=== PATIENT | male | born 1960 | race Caucasian/White ===

== ENCOUNTER 2018-05-04 18:56 | Emergency (ER) | payer OTHER ==
--- NOTE | 2018-05-04 21:39 | ED ---
Dereje Jean Baptiste Tariq, scribed for Daisy Almonte MD on 05/04/18 at 1927 . HPI Cardiac - HPI Summary HPI Summary: A 57 y/o male presents to ED s/p shock from a light fixture. According to the patient, he was working on a light fixture when he was shocked. The fixture was low-voltage light of 110 volts around 1330. Currently feels fine and has been doing fine since the incident, however he is concerned about his AICD pacemaker as he was suggested by his spot machine operator to get it checked out. Pt denies any dizziness, chest pain or LOC. As per triage, "Pt has AICD and feels odd but denies any pain and/or any specific symptoms. It was noted that the AICD pacemaker is 13-14 months old. - History of Current Complaint Chief Complaint: EDGeneral Stated Complaint: ELCTROCUTED/HAS PACEMAKER Time Seen by Provider: 05/04/18 19:24 Hx Obtained From: Patient Onset/Duration: Started Hours Ago - Shock via light fixture at 1330, Resolved Timing: Lasting Hours - Shock via light fixture at 1330 Current Severity: None Pain Intensity: 0 Pain Scale Used: 0-10 Numeric Chest Pain Radiates: No Alleviating Factor(s): Nothing Associated Signs and Symptoms: Positive: Tingling - Tingling in chest. - Allergy/Home Medications Allergies/Adverse Reactions: Allergies Allergy/AdvReac Type Severity Reaction Status Date / Time MS Codeine [Codeine] Allergy Mild upset Verified 09/06/15 06:44 stomach PMH/Surg Hx/FS Hx/Imm Hx Cardiovascular History: Reports: Hx Angina, Hx Coronary Artery Disease - CHOLESTEROL, Hx Hypercholesterolemia, Hx Pacemaker/ICD - FEBRUARY 2017 Respiratory History: Reports: Hx Sleep Apnea - POSSIBLY- BUT HAS NEVER TESTED GI History: Reports: Hx Gastroesophageal Reflux Disease - ON MEDICATION FOR History: Reports: Other Problems/Disorders - UTI 2 YEARS AGO, NONE SINCE Musculoskeletal History: Reports: Hx Arthritis - OSTEOARTHRITIS, Hx Tendonitis - LEFT ELBOW Sensory History: Denies: Hx Contacts or Glasses, Hx Hearing Aid Opthamlomology History: Denies: Hx Contacts or Glasses Neurological History: Reports: Hx Migraine - EVERY COUPLE OF MONTHS-OTC EXCEDRIN MIGRAINE Psychiatric History: Reports: Hx Anxiety - HX OF- ON MEDICATON FOR, Hx Depression - ON MEDICATION FOR Denies: Hx Panic Disorder - Surgical History Surgery Procedure, Year, and Place: SEVERAL KNEE SURGERIES BOTH KNEES- [facility]. LEFT THUMB SURGERY,[facility]. RIGHT THUMB [id number] Hx Anesthesia Reactions: Yes - IN THE PAST - NAUSEA- NO PROBLEMS WITH 2014 SURGERY Infectious Disease History: No Infectious Disease History: Denies: Traveled Outside the [place] in Last 30 Days - Family History Known Family History: Positive: Other - COLON CANCER - Social History Alcohol Use: None Alcohol Amount: FRIDAY NIGHT- 2-3 BEERS AND 2-3 HARD DRINKS Substance Use Type: Reports: None Smoking Status (MU): Former Smoker Type: Cigarettes Amount Used/How Often: 1 PPD X 5 YEARS Length of Time of Smoking/Using Tobacco: 8 YEARS Have You Smoked in the Last Year: No Review of Systems Negative: Fever Positive: Other - POSITIVE: Tingling in chest. Negative: Chest Pain Neurological: Other - NEGATIVE: Dizziness Negative: Syncope All Other Systems Reviewed And Are Negative: Yes Physical Exam - Summary Physical Exam Summary: VITAL SIGNS: Reviewed. GENERAL: Patient is a well-developed and nourished MALE who is lying comfortable in the stretcher. Patient is not in any acute respiratory distress. HEAD AND FACE: No signs of trauma. No ecchymosis, hematomas or skull depressions. No sinus tenderness. EYES: PERRLA, EOMI x 2, No injected conjunctiva, no nystagmus. EARS: Hearing grossly intact. Ear canals and tympanic membranes are within normal limits. MOUTH: Oropharynx within normal limits. NECK: Supple, trachea is midline, no adenopathy, no JVD, no carotid bruit, no c- spine tenderness, neck with full ROM. CHEST: Symmetric, no tenderness at palpation LUNGS: Clear to auscultation bilaterally. No wheezing or crackles. CVS: Regular rate and rhythm, S1 and S2 present, no murmurs or gallops appreciated. ABDOMEN: Soft, non-tender. No signs of distention. No rebound no guarding, and no masses palpated. Bowel sounds are normal. EXTREMITIES: FROM in all major joints, no edema, no cyanosis or clubbing. NEURO: Alert and oriented x 3. No acute neurological deficits. Speech is normal and follows commands. SKIN: Dry and warm Triage Information Reviewed: Yes Vital Signs On Initial Exam: Initial Vitals Temp Pulse Resp BP Pulse Ox 97.9 F 73 16 124/72 96 05/04/18 19:00 05/04/18 19:00 05/04/18 19:00 05/04/18 19:00 05/04/18 19:00 Vital Signs Reviewed: Yes Diagnostics - Vital Signs Vital Signs Temp Pulse Resp BP Pulse Ox 05/04/18 19:00 97.9 F 73 16 124/72 96 - Laboratory Lab Statement: Any lab studies that have been ordered have been reviewed, and results considered in the medical decision making process. - EKG 1910 Cardiac Rate: NL - 74 BPM EKG Rhythm: Sinus Rhythm EKG Interpretation: PACED RHYTHM OF 74 BPM. Re-Evaluation - Re-Evaluation First Eval Re-Evaluation Time: 21:10 Comment: [employer] STATED PACEMAKER WAS WORKING FINE. Disposition - Course Course Of Treatment: A 57 y/o male presents to ED s/p shock from a light fixture. According to the patient, he was working on a light fixture when he was shocked. The fixture was low-voltage light of 110 volts around 1330. Currently feels fine and has been doing fine since the incident, however he is concerned about his AICD pacemaker as he was suggested by his spot machine operator to get it checked out. Pt denies any dizziness, chest pain or LOC. It was noted that the AICD pacemaker is 13-14 months old. An EKG revealed a paced rhythm of 74 BPM. In the ED course, patient was given no medications. We discussed patient care with [employer], Baldomero Duran, and spot machine operator Dr. Prescott. They recommended a local [employer] to evaluate AICD pacemaker. A appliance service representative from the [employer] evaluated the device and revealed the device was properly functioning. Patient will be discharged with a diagnosis of pacemaker malfunction. Patient is to follow up with cardiology in 1-2 days. Pt is agreeable with this plan. - Diagnoses Provider Diagnoses: Pacemaker malfunction - Physician Notifications Discussed Care Of Patient With: Jake Prescott Time Discussed With Above Provider: 19:45 Instructed by Provider To: Other - SPOKE WITH [employer]YCLER, BALDOMERO DURAN. NIELS STATED THAT THE PATIENT WAS ELECTROCUTED FROM A LOW-VOLTAGE SOURCE AND MOST LIKELY THE PACEMAKER IS OKAY, HOWEVER, HE WILL CALL YARN FINISHER , DR. PRESCOTT, TO DISCUSS THE CASE WITH HIM AND WILL CALL BACK. 1952: SPOKE WITH [employer] RECYCLER, BALDOMERO DURAN, AND HE STATED THAT A LOCAL [employer] RECYCLER WILL BE COMING TO SEE PATIENT IN ONE HOUR. Discharge - Sign-Out/Discharge Documenting (check all that apply): Discharge/Admit/Transfer - DISCHARGE - Discharge Plan Condition: Stable Disposition: HOME Patient Education Materials: Pacemaker (DC) Referrals: Karen Manuel MD [Primary Care Provider] - Jake Prescott MD [Medical Doctor] - 2 Days (FOLLOW UP WITH CARDIOLOGY IN 1 -2 DAYS.) Additional Instructions: RETURN TO THE ED FOR ANY NEW OR WORSENING SYMPTOMS. The documentation as recorded by the Dereje arreguin Tariq accurately reflects the service I personally performed and the decisions made by me, Daisy Almonte MD.
[2018-05-04 21:41] VITALS: BP 151/81
== END 2018-05-04 21:41 | disposition home or self-care (01) ==
LOC: ED 18:56
DX: T82.119A Breakdown (mechanical) of unspecified cardiac electronic device, initial encounter (principal); I25.10 Atherosclerotic heart disease of native coronary artery without angina pectoris; Z87.891 Personal history of nicotine dependence; Z87.19 Personal history of other diseases of the digestive system
CPT/HCPCS: 93005; 99282

== ENCOUNTER 2019-12-31 10:52 | Observation (INO) | payer OTHER ==
--- OUTSIDE RECORDS SUMMARY | 2019-12-31 11:08 | XMS REPORT | Continuity of Care Document ---
:1960 External Reference #:[id number] Author Name Precious Gonzalez N.P. (transmitted by agent of provider Zahida Bond) Address [address], [place] [address] Care Team Providers Name Role Phone Karen Manuel MD - Internal Care Team Information Advertising Designer [phone] Medicine Aguilar Patiño MD - Cardiovascular Care Team Information Advertising Designer [phone] Disease Problems Active Problems Provider Date Benign essential hypertension Rosey Monroy M.D., FACP Onset: 01/15/2011 Pure hypercholesterolemia Rosey Monroy M.D., FACP Onset: 01/15/2011 Sleep apnea Sherri Hartman DNP, RN, RECEPTIONIST-BC Onset: 07/12/2016 Left bundle branch block Bubba Batista M.D.,FACP Onset: 11/15/2016 Migraine Rosey Monroy M.D., FACP Onset: 01/15/2011 Obstructive sleep apnea syndrome Sherri Hartman DNP, RN, RECEPTIONIST-BC Onset: Note: Moderate. HST 08/01/16: AHI 28.8, O2 nadya 80% Localized, primary osteoarthritis Irasema Camargo M.D. Onset: 09/10/2017 Essential hypertension Precious Gonzalez NNiko Onset: 12/23/2017 Social History Type Date Description Comments Sex Unknown ETOH Use Currently consumes 2 beverages per week alcohol Tobacco Use Start: Unknown Patient is a former Quit smoking in 1985 End: Unknown smoker Recreational Drug Use Denies Drug Use Tobacco Use Start: Unknown Heavy tobacco smoker 1PPD x 10 years (more than 10 cigarettes/day) Smoking Status Reviewed: 01/22/20 Heavy tobacco smoker 1PPD x 10 years (more than 10 cigarettes/day) Exercise Type/Frequency Exercises regularly Stationary bike and walks 20 minutes 3 times weekly Allergies, Adverse Reactions, Alerts Active Allergies Reaction Severity Comments Date Codeine 04/16/2010 Medications Active Medications SIG Qnty Indications Ordering Date Provider Amoxicillin/Clavulanate one tablet by 20tabs J01.90 Precious Varn, 2019 Potassium mouth twice N.P. 875-125mg Tablets daily for 10 days Fluticasone Propionate 2 sprays each 16gm J01.90 Precious Varn, 11/17/2019 nostril daily as N.P. 50mcg/Act Suspension needed Venlafaxine HCL ER 1 by mouth every 90tabs Precious Varn, 11/17/2019 150mg day N.P. Tablets ER 24HR Sildenafil Citrate Take 1 Tablet By 20tabs Precious Varn, 08/15/2019 50mg Mouth as Needed N.P. Tablets as Directed Xanax 1 tablet every 14tabs F41.1 Precious Varn, 08/02/2019 0.25mg Tablets 12 hours as N.P. needed for anxiety Slow-Mag take 1 tab 2x 60tabs Han FAllyssa 06/24/2019 71.5-119mg Tablets daily Farhad Banerjee DR Protonix 1 by mouth every 90tabs Precious Varn, 12/03/[address] day N.P. Spironolactone 1/2 tab by mouth Unknown 04/02/2017 25mg Tablets every day Atorvastatin Calcium Take One Tablet 90tabs E78.0 Precious Varn, 2012 10mg By Mouth Once N.P. Tablets Daily Cpap for sleep apnea Unknown Device dx g47.30 Coreg 1.5 tab by mouth Jake S. 12.5mg Tablets twice daily Farhad Wallace Entresto 1 tablet by Aguilar Patiño MD 97-103mg Tablets mouth twice daily Lyrica Take One Capsule 90caps Precious Varn, 50mg Capsules By Mouth Three N.P. Times A Day (Max Of 3 Per Day ) History Medications Venlafaxine HCL ER 1 by mouth every 90tabs Precious Carlos, 08/31/2019 - 75mg day N.P. 11/17/2019 Tablets ER 24HR Duloxetine HCL 1 by mouth every 30caps Precious Gonzalez, 08/02/2019 - 60mg Caps day N.P. 08/31/2019 DR Yañez Medications Administered in Office Medication SIG Qnty Indications Ordering Provider Date [facility] pharmacy Unknown 08/04/2019 administered Injection Inj, Regadenoson, 0.1 MG Chu Escobar, DO FAC 11/26/2016 Injection Technetium TC 99M Chu Escobar, DO FACC 11/26/2016 Tetrofosmin, Per Unit Dose Up To 40 Millicuries Injection Celestone 3 mg and 3mg Vivek Oarntes M.D. 03/14/2015 Injection Immunizations CPT Code Status Date Vaccine Lot # [id number] Given 08/04/2019 Influenza Virus Vaccine, Quadrivalent, Split, Preservative Free 13135 Given 08/05/2018 Influenza Virus Vaccine, Quadrivalent, Split, [id number] Preservative Free 02675 Given 11/27/2015 Hepatitis B Vaccine Adult Dosage [id number] 09841 Given 11/27/2015 Hepatitis A Vaccine Adult Dosage [id number] Given 07/01/2012 Fluzone Vaccine [id number] 05041 Given 07/01/2012 Tdap - Tetanus/Diptheria/Acellular Pertussis [id number] 82231 Given 11/23/2009 Influenza Virus Vaccine, Pandemic Formulation 14694 Given 11/23/2009 Administration Swine Flu Shot 58195 Given 08/10/2009 Influenza Virus 3Yrs & Over Vital Signs Date Vital Result Comment 11/17/2019 10:06am Height 70 inches 5'10" Weight 221.12 lb Heart Rate 77 /min BP Systolic Sitting 108 mmHg BP Diastolic Sitting 65 mmHg Body Temperature 97.7 F O2 % BldC Oximetry 97 % BMI (Body Mass Index) 31.7 kg/m2 09/28/2019 9:16am Height 70 inches 5'10" Weight 220.00 lb Heart Rate 70 /min BP Systolic 120 mmHg BP Diastolic 74 mmHg O2 % BldC Oximetry 97 % BMI (Body Mass Index) 31.6 kg/m2 Results Test Acquired Date Facility Test Result H/L Range Note Lipid Panel - 06/16/2019 [facility] Creatine 162 U/L Normal 10 -223 1 [address] [place] [address] [phone] Comp Metabolic 06/16/2019 [facility] Sodium 138 mmol/L Normal 135-[address] [place] [address] [phone] Potassium 4.5 mmol/L Normal 3.5-5.0 Chloride 105 mmol/L Normal 101-111 Co2 Carbon Dioxide 25 mmol/L Normal 22-32 Anion Gap 8 mmol/L Normal 2-11 Glucose 108 mg/dL High 70-100 Blood Urea Nitrogen 16 mg/dL Normal 6-24 Creatinine 1.13 mg/dL Normal 0.67-1.17 BUN/Creatinine Ratio 14.2 Normal 8-20 Calcium 9.6 mg/dL Normal 8.6-10.3 Total Protein 6.8 g/dL Normal 6.4-8.9 Albumin 4.6 g/dL Normal 3.2-5.2 Globulin 2.2 g/dL Normal 2-4 Albumin/Globulin Ratio 2.1 Normal 1-3 Total Bilirubin 0.70 mg/dL Normal 0.2-1.0 Alkaline Phosphatase 93 U/L Normal 34-104 Alt 22 U/L Normal 7-52 Ast 19 U/L Normal 13-39 Egfr Non- 66.2 >60 Egfr 80.1 >60 2 Lipid Profile 06/16/2019 [facility] Triglycerides 142 mg/dL 3 (Trig/Chol/HDL) [place] [address] [phone] Cholesterol 157 mg/dL 4 HDL Cholesterol 45.9 mg/dL 5 LDL Cholesterol 83 mg/dL 6 CBC Auto 06/16/2019 [facility] White Blood 5.8 10^3/uL Normal 3.5-10.8 [place] [address] [phone] Red Blood Count 4.86 10^6/uL Normal 4.18-5.48 Hemoglobin 14.1 g/dL Normal 14.0-18.0 Hematocrit 42 % Normal 42-52 Mean Corpuscular Volume 86 fL Normal 80-94 Mean Corpuscular Hemoglobin 29 pg Normal 27-31 Mean Corpuscular HGB Conc 34 g/dL Normal 31-36 Red Cell Distribution Width 14 % Normal 10-15 Platelet Count 261 10^3/uL Normal 150-450 Mean Platelet Volume 8.1 fL Normal 7.4-10.4 Abs Neutrophils 3.8 10^3/uL Normal 1.5-7.7 Abs Lymphocytes 1.2 10^3/uL Normal 1.0-4.8 Abs Monocytes 0.6 10^3/uL Normal 0-0.8 Abs Eosinophils 0.2 10^3/uL Normal 0-0.6 Abs Basophils 0.0 10^3/uL Normal 0-0.2 Abs Nucleated RBC 0.0 10^3/uL Granulocyte % 66.8 % Lymphocyte % 20.0 % Monocyte % 9.6 % Eosinophil % 2.8 % Basophil % 0.8 % Nucleated Red Blood Cells % 0.1 Laboratory test 06/16/2019 [facility] Magnesium 1.9 mg/dL Normal 1.9-2.7 [address] [place] [address] [phone] TSH (Thyroid Stim Horm) 1.60 mcIU/mL Normal 0.34-5.60 8 1 FASTING 2 Because ethnic data is not always readily available, this report includes an eGFR for both -Americans and non- Americans. The National Kidney Disease Education Program (NKDEP) does not endorse the use of the MDRD equation for patients that are not between the ages of 18 and 70, are , have extremes of body size, muscle mass, or nutritional status, or are non- or non-. According to the National Kidney Foundation, irrespective of diagnosis, the stage of the disease is based on the level of kidney function: Stage Description GFR(mL/min/1.73 m(2)) 1 Kidney damage with normal or decreased GFR 90 2 Kidney damage with mild decrease in GFR 60-89 3 Moderate decrease in GFR 30-59 4 Severe decrease in GFR 15-29 5 Kidney failure <15 (or dialysis) 3 Desirable: <150 Borderline High: 150-199 High: 200-499 Very High: >500 4 Desirable: <200 Borderline High: 200-239 High: >239 5 Low: <40 Desirable: 40-60 High: >60 6 Desirable: <100 Near Optimal: 100-129 Borderline High: 130-159 High: 160-189 Very High: >189 7 FASTING 8 FASTING Procedures Date Code Description Status 09/06/2019 41685 Icd Eval Sing,Dual,Multi Lead Remote Recpt Transm Tech Completed Rev Tech S 09/06/2019 27159 Icd Eval Sing,Dual,Multi Lead Remote Recpt Transm Tech Completed Rev Tech S 09/06/2019 61122 Icd Check Remote Up To 90 Days Single,Dual,Multiple Completed Lead 09/06/2019 58318 Icd Check Remote Up To 90 Days Single,Dual,Multiple Completed Lead 07/15/2019 89917 ECHO Transthoracic, Real-Time 2D With Doppler And Color Completed Flow 07/15/2019 12891 ECHO Transthoracic, Real-Time 2D With Doppler And Color Completed Flow 07/07/2019 60071 Treadmill Interp/Report Only Completed 07/07/2019 66061 Stress Test Supervsn W/Out I/R Completed 06/29/2019 43820 Icd Check Single,Dual Or Multiple In Person W/DR Xie Completed Heart Rhyth 06/29/2019 79535 Icd Check Single,Dual Or Multiple In Person W/DR Xie Completed Heart Rhyth 06/24/2019 72770 EKG Tracing & Interpretation Completed 06/15/2019 24591 Icd Eval With Iterative Adjustmt Multiple Lead System Completed 06/15/2019 23208 Icd Eval With Iterative Adjustmt Multiple Lead System Completed 06/07/2019 50341 Icd Eval Sing,Dual,Multi Lead Remote Recpt Transm Tech Completed Rev Tech S 06/07/2019 46374 Icd Eval Sing,Dual,Multi Lead Remote Recpt Transm Tech Completed Rev Tech S 06/07/2019 98236 Icd Check Remote Up To 90 Days Single,Dual,Multiple Completed Lead 06/07/2019 14262 Icd Check Remote Up To 90 Days Single,Dual,Multiple Completed Lead 12/27/2007 [id number] Colonoscopy Completed Medical Devices Description No Information Available Encounters Type Date Location Provider Dx Diagnosis Office Visit 09/28/2019 Pulmonology And Sherri Hartman, G47.33 Obstructive sleep 9:30a [facility] RN, RECEPTIONIST-BC apnea (adult) Paraprofessional Aide (pediatric) R53.83 Other fatigue Office Visit 09/03/2019 Jabier Joseph S. I42.9 Cardiomyopathy, 2:00p Cardiology Farhad Wallace unspecified Z95.810 Presence of automatic (implantable) cardiac defibrillator I44.7 Left bundle-branch block, unspecified I10 Essential (primary) hypertension Office Visit 08/02/2019 2:00p Paraprofessional Aide Internal Precious Gonzalez, F41.1 Generalized Medicine - [facility] N.P. anxiety disorder Office Visit 06/24/2019 10:30a [facility] Cris Hernández, I42.9 Cardiomyopathy, N.P. unspecified Z95.810 Presence of automatic (implantable) cardiac defibrillator I47.1 Supraventricular tachycardia I44.7 Left bundle-branch block, unspecified I10 Essential (primary) hypertension E78.00 Pure hypercholesterolemia, unspecified Assessments Date Code Description Provider 11/17/2019 J01.90 Acute sinusitis, unspecified Precious Gonzalez, N.P. 11/17/2019 F41.1 Generalized anxiety disorder Precious Gonzalez, N.P. 09/28/2019 G47.33 Obstructive sleep apnea (adult) Sherri Hartman DNP, RN, (pediatric) [facility] 09/28/2019 R53.83 Other fatigue Sherri Hartman DNP, RN, [facility] 09/06/2019 I42.9 Cardiomyopathy, unspecified Jake Wallace M.D. 09/06/2019 I42.9 Cardiomyopathy, unspecified Remote Device Checks 09/06/2019 Z95.810 Presence of automatic (implantable) Jake Wallace M.D. cardiac defibrillator 09/06/2019 Z95.810 Presence of automatic (implantable) Remote Device Checks cardiac defibrillator 09/06/2019 I47.1 Supraventricular tachycardia Jake Wallace M.D. 09/06/2019 I47.1 Supraventricular tachycardia Remote Device Checks 09/03/2019 I42.9 Cardiomyopathy, unspecified Jake Wallace M.D. 09/03/2019 Z95.810 Presence of automatic (implantable) Jake Wallace M.D. cardiac defibrillator 09/03/2019 I44.7 Left bundle-branch block, unspecified Jake Wallace M.D. 09/03/2019 I10 Essential (primary) hypertension Jake Wallace M.D. 08/02/2019 F41.1 Generalized anxiety disorder Precious Gonzalez, N.P. 07/15/2019 I42.9 Cardiomyopathy, unspecified Jake Wallace M.D. 07/15/2019 I42.9 Cardiomyopathy, unspecified [facility] Schedule 07/15/2019 Z95.810 Presence of automatic (implantable) [facility] Schedule cardiac defibrillator 07/15/2019 I44.7 Left bundle-branch block, unspecified [facility] Schedule 07/15/2019 I10 Essential (primary) hypertension [facility] Schedule 07/07/2019 R06.02 Shortness of breath Jake Wallace M.D. 06/29/2019 Z95.810 Presence of automatic (implantable) Jake Wallace M.D. cardiac defibrillator 06/29/2019 Z95.810 Presence of automatic (implantable) [facility] Pacer Schedule cardiac defibrillator 06/24/2019 I47.1 Supraventricular tachycardia Jake Wallace M.D. 06/24/2019 I42.9 Cardiomyopathy, unspecified Cris Hernández, N.P. 06/24/2019 Z95.810 Presence of automatic (implantable) Jake Wallace M.D. cardiac defibrillator 06/24/2019 Z95.810 Presence of automatic (implantable) Cris [place]. Edgar, N.P. cardiac defibrillator 06/24/2019 I47.1 Supraventricular tachycardia Cris Hernández, N.P. 06/24/2019 I44.7 Left bundle-branch block, unspecified Cris [place]. Edgar, N.P. 06/24/2019 I10 Essential (primary) hypertension Cris [place]. Edgar, N.P. 06/24/2019 E78.00 Pure hypercholesterolemia, Cris Hernández, N.P. unspecified 06/15/2019 I42.9 Cardiomyopathy, unspecified [facility] Pacer Schedule 06/15/2019 Z95.810 Presence of automatic (implantable) Jake Wallace M.D. cardiac defibrillator 06/15/2019 Z95.810 Presence of automatic (implantable) [facility] Pacer Schedule cardiac defibrillator 06/07/2019 I42.9 Cardiomyopathy, unspecified Han Banerjee M.D. 06/07/2019 I42.9 Cardiomyopathy, unspecified Remote Device Checks 06/07/2019 Z95.810 Presence of automatic (implantable) Han Banerjee M.D. cardiac defibrillator 06/07/2019 Z95.810 Presence of automatic (implantable) Remote Device Checks cardiac defibrillator Plan of Treatment Future Appointment(s):11/29/2019 9:30 am - [facility] Pacer Schedule at [facility]09/29/2020 9:45 am - Sherri Hartman DNP, RN, RECEPTIONIST- at [facility]03/30/2020 1:20 pm - aJke Wallace M.D. at [facility]02/01/2020 2:20 pm - Precious Gonzalez N.PAllyssa at [facility] Internal [facility] - [facility]11/17/2019 - Precious Gonzalez NNikoJ01.90 Acute sinusitis , unspecifiedNew Medication:Amoxicillin/Clavulanate Potassium 875-125 mg - one tablet by mouth twice daily for 10 daysFluticasone Propionate 50 mcg/Act - 2 sprays each nostril daily as neededComments:For your sinus infection: I sent a prescription for Augmentin to the pharmacy. Take 1 tablet every 12 hours until they are gone. Take this with a little food. I also sent a prescription for a steroid based nasal spray. Use 2 inhalations in each nostril once daily until your infection has cleared. If your symptoms do not improve call the office.F41.1 Generalized anxiety disorderComments:To help with your anxiety and mood I have boosted your Venlafaxine to 150 mg.This may take up to 4 weeks to become therapeutic. If you do not find this to be helpful, please contact the office. Functional Status Description No Information Available Mental Status Description No Information Available Referrals Description No Information Available
--- OUTSIDE RECORDS SUMMARY | 2019-12-31 11:08 | XMS REPORT | Continuity of Care Document ---
:1960 External Reference #:[id number] Author Name Remote Device Checks (transmitted by agent of provider Tiny Terrazas) Address [address] [facility] [address] [place] [address] Care Team Providers Name Role Phone Karen Manuel MD - Internal Care Team Information Data Control Assistant Medicine Aguilar Patiño MD - Cardiovascular Care Team Information Data Control Assistant [phone] Disease Problems Active Problems Provider Date Benign essential hypertension Rosey Monroy M.D., FACP Onset: 01/15/2011 Pure hypercholesterolemia Rosey Monroy M.D., FACP Onset: 01/15/2011 Sleep apnea Sherri Hartman DNP, RN, [employer] Onset: 07/12/2016 Left bundle branch block Bubba Batista M.D.,FACP Onset: 11/15/2016 Migraine Rosey Monroy M.D., FACP Onset: 01/15/2011 Obstructive sleep apnea syndrome Sherri Hartman DNP, RN, [employer] Onset: Note: Moderate. HST 08/01/16: AHI 28.8, O2 nadya 80% Localized, primary osteoarthritis Irasema Camargo M.D. Onset: 09/10/2017 Essential hypertension Precious Gonzalez N.P. Onset: 12/23/2017 Social History Type Date Description Comments Sex Unknown ETOH Use Currently consumes 2 beverages per week alcohol Tobacco Use Start: Unknown Patient is a former Quit smoking in 1985 End: Unknown smoker Recreational Drug Use Denies Drug Use Tobacco Use Start: Unknown Heavy tobacco smoker 1PPD x 10 years (more than 10 cigarettes/day) Smoking Status Reviewed: 11/17/19 Heavy tobacco smoker 1PPD x 10 years (more than 10 cigarettes/day) Exercise Type/Frequency Exercises regularly Stationary bike and walks 20 minutes 3 times weekly Allergies, Adverse Reactions, Alerts Active Allergies Reaction Severity Comments Date Codeine 04/16/2010 Medications Active Medications SIG Qnty Indications Ordering Date Provider Venlafaxine HCL ER 1 by mouth every 90tabs Precious Varn, 11/17/2019 150mg day N.P. Tablets ER 24HR Sildenafil Citrate Take 1 Tablet By 20tabs Precious Varn, 08/15/2019 50mg Mouth as Needed N.P. Tablets as Directed Xanax 1 tablet every 14tabs F41.1 Precious Varn, 08/02/2019 0.25mg Tablets 12 hours as N.P. needed for anxiety Slow-Mag take 1 tab 2x 180tabs [place] 06/24/2019 71.5-119mg daily Farhad Banerjee Tablets Protonix 1 by mouth every 90tabs Precious Varn, 12/03/[address] day N.P. Spironolactone 1/2 tab by mouth Unknown 04/02/2017 25mg every day Tablets Atorvastatin Calcium Take One Tablet 90tabs E78.0 Precious Varsadiq, 2012 10mg By Mouth Once N.P. Tablets Daily Cpap for sleep apnea Unknown Device dx g47.30 Coreg 1.5 tab by mouth Qutacaridad S. 12.5mg Tablets twice daily Farhad Wallace Entresto 1 tablet by Aguilar Patiño MD 97-103mg Tablets mouth twice daily Lyrica Take One Capsule 90caps Precious Varn, 50mg Capsules By Mouth Three N.P. Times A Day (Max Of 3 Per Day ) History Medications Amoxicillin/Clavulanate one tablet by 20tabs J01.90 Precious Varn, 2019 - Potassium mouth twice N.P. 11/27/2019 875-125mg Tablets daily for 10 days Fluticasone Propionate 2 sprays each 16gm J01.90 Precious Varn, 2019 - 50mcg/Act nostril daily N.P. 12/01/2019 Suspension as needed Venlafaxine HCL ER 1 by mouth 90tabs Precious Gonzalez, 08/31/2019 - 75mg Tablets ER 24HR every day N.P. 11/17/2019 Duloxetine HCL 1 by mouth 30caps Precious Gonzalez, 08/02/2019 - 60mg Caps DR Otilio every day N.P. 08/31/2019 Medications Administered in Office Medication SIG Qnty Indications Ordering Provider Date [facility] Unknown 12/07/2019 administered Injection [facility] Unknown 08/04/2019 administered Injection Inj, Regadenoson, 0.1 MG Chu Escobar, DO FACC 11/26/2016 Injection Technetium TC 99M Chu Escobar, DO FAC 11/26/2016 Tetrofosmin, Per Unit Dose Up To 40 Millicuries Injection Celestone 3 mg and 3mg Vivek Orantes M.D. 03/14/2015 Injection Immunizations CPT Code Status Date Vaccine Lot # [id number] Given 08/04/2019 Influenza Virus Vaccine, Quadrivalent, Split, Preservative Free [id number] Given 08/05/2018 Influenza Virus Vaccine, Quadrivalent, Split, [id number] Preservative Free 67830 Given 11/27/2015 Hepatitis B Vaccine Adult Dosage [id number] 54325 Given 11/27/2015 Hepatitis A Vaccine Adult Dosage [id number] Given 07/01/2012 Fluzone Vaccine [id number] Given 07/01/2012 Tdap - Tetanus/Diptheria/Acellular Pertussis [id number] 30163 Given 11/23/2009 Influenza Virus Vaccine, Pandemic Formulation 24737 Given 11/23/2009 Administration Swine Flu Shot 42987 Given 08/10/2009 Influenza Virus 3Yrs & Over [...] BMI (Body Mass Index) 31.6 kg/m2 Results Description No Information Available Procedures Date Code Description Status 12/30/2019 56616 Icd Eval Sing,Dual,Multi Lead Remote Recpt Transm Tech Completed Rev Tech S 12/30/2019 93103 Icd Check Remote Up To 90 Days Single,Dual,Multiple Completed Lead 11/29/2019 35797 Icd Check Single,Dual Or Multiple In Person W/DR Xie Completed Heart Rhyth 11/29/2019 27748 Icd Check Single,Dual Or Multiple In Person W/DR Xie Completed Heart Rhyth 09/06/2019 07600 Icd Eval Sing,Dual,Multi Lead Remote Recpt Transm Tech Completed Rev Tech S 09/06/2019 01409 Icd Eval Sing,Dual,Multi Lead Remote Recpt Transm Tech Completed Rev Tech S 09/06/2019 58007 Icd Check Remote Up To 90 Days Single,Dual,Multiple Completed Lead 09/06/2019 23956 Icd Check Remote Up To 90 Days Single,Dual,Multiple Completed Lead 07/15/2019 46535 ECHO Transthoracic, Real-Time 2D With Doppler And Color Completed Flow 07/15/2019 57769 ECHO Transthoracic, Real-Time 2D With Doppler And Color Completed Flow 07/07/2019 90928 Treadmill Interp/Report Only Completed 07/07/2019 33731 Stress Test Supervsn W/Out I/R Completed 12/27/2007 78935304 Colonoscopy Completed Medical Devices Description No Information Available Encounters Type Date Location Provider Dx Diagnosis Office Visit 11/17/2019 [facility] Jorden Gonzalez, J01.90 Acute sinusitis , 10:00a Medicine - [facility] N.P. unspecified F41.1 Generalized anxiety disorder Office Visit 09/28/2019 [facility] G47.33 Obstructive sleep 9:30a [facility], RN, apnea (adult) [facility] [employer] (pediatric) R53.83 Other fatigue Office Visit 09/03/2019 Jabier Galvez I42.9 Cardiomyopathy, 2:00p Cardiology Farhad Wallace unspecified Z95.810 Presence of automatic (implantable) cardiac defibrillator I44.7 Left bundle-branch block, unspecified I10 Essential (primary) hypertension Office Visit 08/02/2019 2:00p [facility] Jorden Gonzalez, F41.1 Generalized Medicine - N.P. anxiety disorder [facility] Assessments Date Code Description Provider 12/30/2019 I42.9 Cardiomyopathy, unspecified Remote Device Checks 12/30/2019 Z95.810 Presence of automatic (implantable) Remote Device Checks cardiac defibrillator 12/30/2019 I47.1 Supraventricular tachycardia Remote Device Checks 11/29/2019 I42.9 Cardiomyopathy, unspecified Jake Wallace M.D. 11/29/2019 I42.9 Cardiomyopathy, unspecified [facility] Pacer Schedule 11/29/2019 Z95.810 Presence of automatic (implantable) Jake Wallace M.D. cardiac defibrillator 11/29/2019 Z95.810 Presence of automatic (implantable) Ica Pacer Schedule cardiac defibrillator 11/29/2019 I47.1 Supraventricular tachycardia Jake Wallace M.D. 11/29/2019 I47.1 Supraventricular tachycardia Ica Pacer Schedule 11/17/2019 J01.90 Acute sinusitis, unspecified Precious Gonzalez, N.P. 11/17/2019 F41.1 Generalized anxiety disorder Precious Gonzalez, N.P. 09/28/2019 G47.33 Obstructive sleep apnea (adult) Sherri Hartman DNP, RN, (pediatric) [facility] 09/28/2019 R53.83 Other fatigue Sherri Hartman DNP, RN, [facility] 09/06/2019 I42.9 Cardiomyopathy, unspecified Jake Wallace M.D. [...] M.D. 08/02/2019 F41.1 Generalized anxiety disorder Precious Gonzalez N.P. 07/15/2019 I42.9 Cardiomyopathy, unspecified Jake Wallace M.D. 07/15/2019 I42.9 Cardiomyopathy, unspecified [place] [facility] Schedule 07/15/2019 Z95.810 Presence of automatic (implantable) [facility] Schedule cardiac defibrillator 07/15/2019 I44.7 Left bundle-branch block, unspecified [place] [facility] Schedule 07/15/2019 I10 Essential (primary) hypertension [place] [facility] Schedule 07/07/2019 R06.02 Shortness of breath Jake Wallace M.D. Plan of Treatment Future Appointment(s):09/29/2020 9:45 am - Sherri Hartman DNP, RN, [employer] at [facility]03/30/2020 1:20 pm - Jake Wallace M.D. at [facility]02/01/2020 2:20 pm - Precious Gonzalez N.PAllyssa at [facility] Internal Medicine - [facility]11/17/2019 - Precious Gonzalez [...]
[2019-12-31] MEDS ORDERED: NS 0.9% 1000 ML** 1,000 ML IV ONE (11:13)
--- NOTE | 2019-12-31 11:13 | ED ---
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 The patient rates the pain 8/10 in severity. Symptoms aggravated by nothing. Symptoms alleviated by nothing. Patient denies radiation of his pain, abdominal pain, cough, fever, pain or swelling in his legs, or vomiting. He has a history of an MO and a pacemaker/defibrillator. Medication list reviewed. Allergy list reviewed. Home Medications Medication Instructions Recorded Confirmed Type Atorvastatin* [Lipitor 10 MG*] 10 mg PO QAM 09/08/14 07/07/19 History Pregabalin [Lyrica] 50 mg PO DAILY 01/07/18 07/07/19 History Sildenafil Citrate [Viagra] 50 mg PO DAILY PRN 01/07/18 07/07/19 History Spironolactone 12.5 mg PO DAILY 01/07/18 07/07/19 History Carvedilol TAB* [Coreg TAB*] 1.5 tab PO BID 07/06/19 07/07/[address] CAP* [Cymbalta CAP*] 30 mg PO DAILY 07/06/19 07/07/19 History Pantoprazole TAB * [Protonix TAB*] 40 mg PO DAILY 07/06/19 07/07/19 History Sacubitril/Valsartan [Entresto 97 1 each PO BID 07/06/19 07/07/19 History mg-103 mg Tablet] Magnesium Chloride EC TAB* [Slow 64 mg PO DAILY 07/07/19 07/07/19 History Mag EC TAB*] - History of Current Complaint Chief Complaint: EDChestPainROMI Time Seen by Provider: 12/31/19 11:06 Hx Obtained From: Patient, Family/Records Management Assistant Onset/Duration: Started Minutes Ago - 60 minutes Timing: Constant Initial Severity: Moderate Current Severity: Moderate Pain Intensity: 8 Pain Scale Used: 0-10 Numeric Chest Pain Radiates: No Aggravating Factor(s): Nothing Alleviating Factor(s): Nothing Associated Signs and Symptoms: Positive: Negative - Leg pain, leg swelling, Dizziness, Shortness of Breath, Lightheadedness, Diaphoresis, Nausea. Negative : Fever, Cough, Abdominal Pain, Vomiting - Allergy/Home Medications Allergies/Adverse Reactions: Allergies Allergy/AdvReac Type Severity Reaction Status Date / Time codeine Allergy GI Upset Verified 12/31/19 11:03 Home Medications: Home Medications Atorvastatin* [Lipitor 10 MG*] 10 mg PO QAM 09/08/14 [History Confirmed 12/31/19 ] Pregabalin [Lyrica] 50 mg PO DAILY 01/07/18 [History Confirmed 12/31/19] Sildenafil Citrate [Viagra] 50 mg PO DAILY PRN 01/07/18 [History Confirmed 12/30] Spironolactone 12.5 mg PO DAILY 01/07/18 [History Confirmed 12/31/19] Carvedilol TAB* [Coreg TAB*] 12.5 mg PO BID 07/06/19 [History Confirmed 12/31/19 ] Sacubitril/Valsartan [Entresto 97 mg-103 mg Tablet] 1 each PO BID 07/06/19 [ History Confirmed 12/31/19] Venlafaxine ER (NF) [Effexor ER (NF)] 150 mg PO DAILY 12/31/19 [History Confirmed 12/31/19] PMH/Surg Hx/FS Hx/Imm Hx Endocrine/Hematology History: Denies: Hx Diabetes Cardiovascular History: Reports: Hx Angina, Hx Coronary Artery Disease - CHOLESTEROL, Hx Hypercholesterolemia, Hx Myocardial Infarction, Hx Pacemaker/ ICD - FEBRUARY 2017- [employer] - NOT MR CONDITONAL Respiratory History: Reports: Hx Sleep Apnea - POSSIBLY- BUT HAS NEVER TESTED Denies: Hx Asthma, Hx Chronic Obstructive Pulmonary Disease (COPD) GI History: Reports: Hx Gastroesophageal Reflux Disease - ON MEDICATION FOR History: Reports: Other Problems/Disorders - UTI 2 YEARS AGO, NONE SINCE Denies: Hx Chronic Renal Failure Musculoskeletal History: Reports: Hx Arthritis - OSTEOARTHRITIS, Hx Tendonitis - LEFT ELBOW Sensory History: Denies: Hx Contacts or Glasses, Hx Hearing Aid Opthamlomology History: Denies: Hx Contacts or Glasses Neurological History: Reports: Hx Migraine - EVERY COUPLE OF MONTHS-OTC EXCEDRIN MIGRAINE Psychiatric History: Reports: Hx Anxiety - HX OF- ON MEDICATON FOR, Hx Depression - ON MEDICATION FOR Denies: Hx Panic Disorder - Surgical History Surgery Procedure, Year, and Place: 03/25/17 - PACEMAKER/DEFIB - [employer] [facility] - NOT COMPATIBLE FOR MRI. SEVERAL KNEE SURGERIES BOTH KNEES- [facility]. LEFT THUMB SURGERY,[facility]. RIGHT THUMB [id number], left shoulder Hx Anesthesia Reactions: Yes - IN THE PAST - NAUSEA- NO PROBLEMS WITH 2014 SURGERY Infectious Disease History: No Infectious Disease History: Denies: Traveled Outside the [place] in Last 30 Days - Family History Known Family History: Positive: Other - COLON CANCER - Social History Alcohol Use: Rare Alcohol Amount: FRIDAY NIGHT- 2-3 BEERS AND 2-3 HARD DRINKS Substance Use Type: Reports: None Smoking Status (MU): Former Smoker Type: Cigarettes Amount Used/How Often: 1 PPD X 5 YEARS Length of Time of Smoking/Using Tobacco: 8 YEARS Have You Smoked in the Last Year: No Review of Systems Positive: Skin Diaphoresis. Negative: Fever Positive: Chest Pain Positive: Shortness Of Breath. Negative: Cough Positive: Nausea. Negative: Abdominal Pain, Vomiting Musculoskeletal: Negative - Leg pain, leg swelling Neurological/Mental Status: Other - Lightheadedness, dizziness All Other Systems Reviewed And Are Negative: Yes Physical Exam - Summary Physical Exam Summary: Constitutional: Well-developed, Well-nourished, Alert. (-) Distressed Skin: Warm, Dry HENT: Normocephalic; Atraumatic Eyes: Conjunctiva normal Neck: Musculoskeletal ROM normal neck. (-) JVD, (-) Stridor, (-) Tracheal deviation Cardio: Rhythm regular, rate normal, Heart sounds normal; Intact distal pulses; The pedal pulses are 2+ and symmetric. Radial pulses are 2+ and symmetric. (-) Murmur Pulmonary/Chest wall: Effort normal. (-) Respiratory distress, (-) Wheezes, (-) Rales Abd: Soft, (-) tenderness, (-) Distension, (-) Guarding, (-) Rebound Musculoskeletal: (-) Edema Lymph: (-) Cervical adenopathy Neuro: Alert, Oriented x3 Psych: Mood and affect Normal Triage Information Reviewed: Yes Vital Signs On Initial Exam: Initial Vitals Temp Pulse Resp BP Pulse Ox 97.7 F 89 16 133/81 99 12/31/19 11:02 12/31/19 11:02 12/31/19 11:02 12/31/19 11:02 12/31/19 11:02 Vital Signs Reviewed: Yes Procedures - Sedation Patient Received Moderate/Deep Sedation with Procedure: No Diagnostics - Vital Signs Vital Signs Temp Pulse Resp BP Pulse Ox 12/31/19 11:02 97.7 F 89 16 133/81 99 - Laboratory Result Diagrams: 12/31/19 11:18 12/31/19 11:18 Lab Statement: Any lab studies that have been ordered have been reviewed, and results considered in the medical decision making process. - Radiology Chest x-ray Radiology Interpretation Completed By: Radiologist Summary of Radiographic Findings: NO ACTIVE CARDIOPULMONARY DISEASE. ED physician has reviewed this report. - EKG 10:56 Cardiac Rate: NL - 72 BPM Summary of EKG Findings: Atrial-sensed ventricular-paced rhythm. Dr. Walter has reviewed and interpreted this EKG. 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 Physical exam findings: no significant findings. An EKG reveals atrial-sensed ventricular-paced rhythm, rate of 72 BPM. CXR reveals, per radiologist, NO ACTIVE CARDIOPULMONARY DISEASE. Test results with no significant abnormalities except for a glucose of 123. In the ED course, the patient was given aspirin and normal saline. We discussed patient care with Dr. Wallace at 13:53 who recommended admission for observation and a probable echocardiogram. Patient will be admitted. The patient is agreeable with this plan. - Diagnoses Provider Diagnoses: Chest pain - Provider Notifications Discussed Care Of Patient With: Jake Wallace Time Discussed With Above Provider: 13:53 Instructed by Provider To: Other - Spoke with Dr. Wallace who recommends admission for observation and a probable echocardiogram. [14:10] Spoke with Dr. Delacruz regarding the patient. Discharge ED - Sign-Out/Discharge Documenting (check all that apply): Patient Departure - Discharge Plan Condition: Stable Disposition: ADMITTED TO [facility] - Billing Disposition and Condition Condition: STABLE Disposition: Admitted to [facility] - Attestation Statements Document Initiated by Scribe: Yes Documenting Scribe: Magali Prieto Provider For Whom Scribe is Documenting (Include Credential): Yasmani Walter DO Scribe Attestation: Magali Jean Baptiste scribed for Yasmani Walter DO on 12/31/19 at 1546. Scribe Documentation Reviewed: Yes Provider Attestation: The documentation as recorded by the scribe, Magali Prieto accurately reflects the service I personally performed and the decisions made by me, Yasmani Walter, DO Status of Scribe Document: Viewed
[2019-12-31] MEDS ORDERED: Aspirin 81 mg CHEW TAB* 81 MG TAB.CHEW PO ONE (11:19)
[2019-12-31 11:24] LABS: ABS Lymphocytes 1.1 10^3/ul (1.0-4.8); ABS Monocytes 0.4 10^3/ul (0-0.8); Hematocrit 42 % (42-52); Hemoglobin 14.4 g/dL (14.0-18.0); Lymphocyte % 24.4 %; Mean Corpuscular HGB Conc 35 g/dL (31-36); Mean Corpuscular Hemoglobin 30 pg (27-31); Mean Corpuscular Volume 86 fL (80-94); Mean Platelet Volume 7.5 fL (7.4-10.4); Platelet Count 227 10^3/uL (150-450); Red Blood Count 4.83 10^6 /uL (4.18-5.48); Red Cell Distribution Width 14 % (10-15); White Blood Count 4.5 10^3/uL (3.5-10.8)
[2019-12-31 11:44] LABS: Albumin 4.4 g/dL (3.2-5.2); Albumin/Globulin Ratio 1.8 (1-3); BUN/Creatinine Ratio 12.6 (8-20); Calcium 9.4 mg/dL (8.6-10.3); EGFR African American 88.8 (>60); EGFR Non-African American 73.4 (>60); Globulin 2.4 g/dL (2-4); Magnesium 1.9 mg/dL (1.9-2.7); Total Bilirubin 0.5 mg/dL (0.2-1.0); Total Protein 6.8 g/dL (6.4-8.9)
[2019-12-31 11:46] LABS: Troponin I 0.02 ng/mL (<0.03)
[2019-12-31 11:48] LABS: Activated Partial Thrombo Time 28.5 seconds (26.0-38.0); INR 1.07 (0.82-1.09)
[2019-12-31] MEDS ORDERED: Al Hydrox/Mg Hydrox/Simet LIQ* 30 ML UDC PO PRN (14:49)
[2019-12-31] MEDS ORDERED: Acetaminophen TAB* 325 MG PO PRN (14:49)
[2019-12-31] MEDS ORDERED: Perflutren Lipid Microsphere* 3 ML VIAL ONE (15:16)
--- NOTE | 2019-12-31 17:26 | ECHO ---
*[facility]* [place] [address] Fax #: [phone] Transthoracic Echocardiogram Patient: Alvaro Roberts : 1960 Study Date: 12/31/2019 Age: 59 Gender: M HR: 65 bpm Height: 72 in /182.9 cm BSA: 2.2 m^2 Weight: 214.6 lb /97.5 kg BMI: 29.2 kg/m^2 *Teamcenter Consultant: * Natasha Byrd RDCS RN *Referring Physician: * Ness Delacruz *Reading Physician: * Chu Escobar MD Indications: Chest Pain, unspecified. History: Coronary artery disease. [place]. AICD. LBBB. Possible sleep apnea. GERD. Migraine. Risk factors: Former tobacco use. Conclusions Summary: - Left ventricle: The cavity size is normal. Wall thickness is mildly to moderately increased. Systolic function is normal. The estimated ejection fraction is 55-60%. Wall motion is normal; there are no regional wall motion abnormalities. - Right ventricle: The cavity size is normal. Pacer wire noted in the right ventricle. Systolic function is normal. - Left atrium: The atrium is normal in size. - Right atrium: The atrium is normal in size. - Pulmonary arteries: Systolic pressure cannot be accurately estimated. - No significant valvular abnormalities noted. Recommendations: Study similar to 06/2019. Study data: Transthoracic echocardiogram. Procedure: Transthoracic echocardiography was performed. Image quality was fair. The study was technically limited due to smoking history. Intravenous Definity 3 ml was administered to enhance imaging. Complete 2D, spectral Doppler, and color flow Doppler. Location: Emergency department. Patient status: Inpatient. Patient room number: ED 5. Rhythm: Normal sinus rhythm and paced rhythm. Findings Left ventricle: The cavity size is normal. Wall thickness is mildly to moderately increased. Systolic function is normal. The estimated ejection fraction is 55-60%. Wall motion is normal; there are no regional wall motion abnormalities. There is no consistent Doppler evidence of clinically significant diastolic dysfunction. Right ventricle: The cavity size is normal. Pacer wire noted in the right ventricle. Systolic function is normal. Left atrium: The atrium is normal in size. Right atrium: The atrium is normal in size. Pacer wire noted in right atrium. Mitral valve: The leaflets are mildly thickened. There is no evidence of stenosis. There is no significant regurgitation. Aortic valve: The valve is trileaflet. The leaflets are mildly thickened. There is no evidence of stenosis. There is no regurgitation. Tricuspid valve: Not well visualized. There is trace regurgitation. Pulmonic valve: Not well visualized. There is no evidence of stenosis. There is trace regurgitation. Aorta: Aortic root: The aortic root is not dilated. Ascending aorta: The ascending aorta is not dilated. Aortic arch: The aortic arch is not dilated. Pericardium: There is no pericardial effusion. Pulmonary arteries: Not well visualized. Systolic pressure cannot be accurately estimated. Systemic veins: Inferior vena cava: The vessel is normal in size. There is (>= 50%) respiratory change in the IVC dimension. Measurements Left ventricle Value Ref Aortic valve Value Ref OBEY, LAX 4.6 cm 4.2 - 5.8 Kd diam, ED 1.9 cm ---- ESD, LAX 3.9 cm 2.5 - 4.0 Kd diam/bsa, ED 0.9 cm/m^2 ---- FS, LAX (L) 15 % 25 - 43 Peak v, S 1.1 m/sec ---- PW, ED (H) 1.3 cm 0.6 - 1.0 VTI, S 23.2 cm ---- IVS/PW, ED 1.16 Mean grad, S 3.0 mm Hg ---- E', lat kd, TDI (L) 9.1 cm/sec >=10.0 Peak grad, S 5.0 mm Hg - --- E/e', lat kd, 9 LVOT/AV, VTI ratio 0.85 ---- TDI E', med kd, TDI 8.6 cm/sec >=7.0 Mitral valve Value R ef E/e', med kd, 9 Peak E 0.78 m/sec ---- TDI Peak A 0.83 m/sec ---- E', avg, TDI 8.9 cm/sec Decel time 236 ms ---- E/e', avg, TDI 9 <=14 Peak grad, D 2.4 mm Hg - --- Peak E/A ratio 0.9 ---- LVOT Value Ref Peak precious, S 0.99 m/sec Pulmonic valve Value Ref VTI, S 19.7 cm Peak v, S 0.69 m/sec ---- Mean grad, S 2 mm Hg Peak grad, S 2.0 mm Hg ---- Ventricular septum Value Ref Aortic root Value Ref IVS, ED (H) 1.5 cm 0.6 - 1.0 Root diam 3.1 cm <4.3 Right ventricle Value Ref Ascending aorta Value Ref OBEY, LAX 2.9 cm AAo AP diam, S 3.1 cm ---- OBEY minor ax, A4C (H) 3.9 cm 1.9 - 3.5 mid Aortic arch Value Ref Arch diam 2.6 cm ---- Left atrium Value Ref AP dim, ES (H) 4.30 cm 3.00 - Decending aorta Value Ref 4.00 Luisa peak precious 0.7 m/sec ---- ML dim, A4C 3.9 cm SI dim, A4C 5.0 cm Inferior vena cava Value Ref Vol/bsa, ES, 1-p 19 ml/m^2 12 - 37 Diam 1.8 cm ---- A4C Vol/bsa, ES, A/L 26 ml/m^2 16 - 34 Right atrium Value Ref ML dim, ES, A4C 4.0 cm 2.6 - 4.4 SI dim, ES, A4C 4.8 cm 3.4 - 5.3 Estimated RAP 3 mm Hg Legend: (L) and (H) kwaku values outside specified reference range. Prepared and electronically signed by Chu Escobar MD 12/31/2019 17:26
--- NOTE | 2019-12-31 18:44 | HP ---
CC: Dr. Karen Manuel; Dr. Escobar, Cardiology; Dr. Wallace * HISTORY AND PHYSICAL: DATE OF ADMISSION: 12/31/19 PRIMARY CARE PROVIDER: Dr. Karen Manuel. CHIEF COMPLAINT: Nausea, chest pain, diaphoresis while driving back from [place]. HISTORY OF PRESENT ILLNESS: Alvaro Roberts is a 59-year-old male with history of nonischemic cardiomyopathy and episodes of nonsustained V-tach for which he has biventricular pacer in place, who came into the hospital complaining of symptoms of chest pain. The patient stated that yesterday in the morning he felt well. He drove his daughter to [facility], and on the way back from [place], he reports he had an episode of lightheadedness, diaphoresis, substernal chest pressure. It was not associated with shortness of breath. He also had sweats and he felt that the episode was similar to what occurred in September of 2019 when he had an episode of nonsustained ventricular tachycardia that was documented on his pacer. He came into the ED and his symptoms resolved. He also noted that he has not eaten breakfast, and in fact, he has not eaten until he presented to the ED. He usually is not "a breakfast person. " Otherwise, he had been in his usual state of health with exercise tolerance at baseline. The patient is going to be placed on overnight observation with a diagnosis of chest pain. PAST MEDICAL HISTORY: 1. Nonischemic cardiomyopathy diagnosed in 2017, cardiac catheterization at that point was quoted as "normal." The patient has history of left bundle- branch block. 2. Hypertension. 3. History of biventricular ICD placement in 2017. 4. Obstructive sleep apnea, on CPAP. 5. Chronic pain. 6. Gastroesophageal reflux disease. 7. Status post left shoulder surgery. 8. History of arthroscopic knee surgeries. 9. History of right hand surgery for "osteoarthritis." 10. History of lumbar spine fusion from L3 to S1. MEDICATIONS AT HOME: Include: 1. Lyrica 50 mg daily. 2. Entresto 97/103 one tablet b.i.d. 3. Aldactone 12.5 mg daily. 4. Effexor ER 150 mg daily. 5. Coreg 12.5 mg b.i.d. 6. Lipitor 10 mg daily. 7. Viagra 50 mg on a p.r.n. basis. ALLERGIES: CODEINE. FAMILY HISTORY: Positive for father who of COPD at the age of 75. Mother who of colon cancer at the age of 74. SOCIAL HISTORY: The patient has history of 10-pack year smoking, quit smoking in 1985. He denies any drug use. He drinks alcohol rarely. 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 He lives with his who is his surrogate. His daughter is one of our nurses from [facility]. REVIEW OF SYSTEMS: Please see history of present illness. All the remaining 12 systems were reviewed with the patient and were otherwise negative. PHYSICAL EXAMINATION GENERAL: The patient is a very pleasant 59-year-old male, who is in no acute distress. The patient is alert and oriented x3. VITAL SIGNS: Blood pressure of 141/83, heart rate of 70 and regular, respiratory rate 13, oxygen saturation 96% on room air, temperature of 97.7. HEENT: Head: Atraumatic, normocephalic. Eyes: Pupils are equal, reactive to light and accommodation. Oropharynx is clear. Mucosa moist. NECK: Supple. No JVD. No bruits bilaterally. RESPIRATORY: Clear to auscultation bilaterally. CARDIOVASCULAR: Regular rate and rhythm. No murmur. ABDOMEN: Soft, nontender. Bowel sounds are present in all 4 quadrants. EXTREMITIES: No edema. Pulses are +2 bilaterally. No clubbing or cyanosis. NEUROLOGIC: Speech is clear. Cranial nerves II through XII grossly intact. Motor strength is 5/5 bilaterally. DIAGNOSTIC STUDIES/LAB DATA: White blood cell count of 4.5, hemoglobin of 14.4 , hematocrit of 42, MCV of 86, and platelets of 227. D-dimer of below 200. Sodium was 138, potassium 4.0, chloride 107, carbon dioxide 24, BUN 13, creatinine 1.03. Liver function tests unremarkable. Troponin of 0.02 and 0.01 , brain natriuretic peptide was 30. The patient's glucose level was 123. Portable chest x-ray, impression: "No active cardiopulmonary disease." The patient's EKG showed ventricularly paced rhythm with a heart rate of 72 beats per minute. ASSESSMENT AND PLAN: 1. An episode of diaphoresis and lightheadedness while driving. At this point , the differential includes cardiac arrhythmia. It could be also cardiac ischemia, although the patient has a recent cardiac stress test in June of 2019 that was basically unremarkable and low risk, although he did have a small area of reversibility noted. The patient's troponins are also negative. He could have had another episode of nonsustained ventricular tachycardia for which the patient's pacemaker is going to be interrogated. The patient also could have symptoms of hypoglycemia, although at this point currently he is not hypoglycemic. He has not eaten anything until his admission. 2. In regards to the patient's cardiomyopathy, the patient is going to be continued on his outpatient medications. I will also ask Dr. Escobar from Cardiology to see the patient in consultation. 3. For DVT prophylaxis, the patient is going to be placed on heparin subcutaneously. 4. The patient's code status is full. His surrogate is his . 5. For obstructive sleep apnea, CPAP is going to be provided. TIME SPENT: Approximately 65 minutes was spent on admission of this patient, more than half that time was spent [id number] with the patient during the interview and physical exam. [id number]/[facility] #: [id number] DWAYNE
--- NOTE | 2019-12-31 18:48 | PROCNOTE ---
Cardiology Procedure Note Lab42 BiV-ICD interrogation -BIV paced at time of interrogation 8 years battery life A lead 3.4 mV, 440 ohms, threshold not checked RV paced unable to check sensitivity, 575 ohms, threshold not checked LV 21.mV, 1478 ohms, treshhold not checked Set DDD LRL 60 bpm 1% AP, 100% BiV paced Events since 11/29/2019 12/15/2019: 8 beat NSVT 200 bpm Impression: Normal device function No cause of patients symptoms identified
--- NOTE | 2019-12-31 18:56 | CONSULT ---
Subjective Date of Service: 12/31/19 Interval History: Admission Date: 12/31/19 Consult date 12/31/2019 Cardiology; Dr. Wallace PRIMARY CARE PROVIDER: Dr. Karen Manuel/Precious Gonzalez NP CHIEF COMPLAINT: Nausea, chest pain, diaphoresis while driving back from [place]. HISTORY OF PRESENT ILLNESS: Alvaro Roberts is a 59-year-old man with a history as below. He was in his usual state of health. He was driving back [place] airport dropping daughter Pily alonzo who is an RN on [employer]. He felt chest discomfort, diaphoresis, lightheadedness. His episode lasted about 30 minutes. He tells me he took SBP and was 130's higher than normal and was not low. He is now asymptomatic. He had no alcohol yesterday or today. Does not drink coffee. Had pizza with meat based toppings night before episode which is typical for him. His device interogation (see separate report) was normal with VT1 monitor zone of 150 bpm. Echo shows a normal LVEF. Troponin was normal. 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 History of arthroscopic knee surgeries. History of right hand surgery for "osteoarthritis." History of lumbar spine fusion from L3 to S1. ALLERGIES: CODEINE. FAMILY HISTORY: Positive for father who of COPD at the age of 75. Mother who of colon cancer at the age of 74. SOCIAL HISTORY: The patient has history of 10-pack year smoking, quit smoking in 1985. He denies any drug use. He drinks alcohol regularly. 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 He lives with his , who is his surrogate. Medications Active Medications: Acetaminophen (Tylenol Tab*) 650 mg PO Q4H PRN PRN Reason: PAIN-MILD/TEMP >/= 100.4 Al Hydrox/Mg Hydrox/Simethicone (Maalox Plus*) 30 ml PO Q6H PRN PRN Reason: INDIGESTION Atorvastatin Calcium (Lipitor*) 10 mg PO QAM ROSE Carvedilol (Coreg Tab*) 12.5 mg PO BID ROSE Heparin Sodium (Porcine) (Heparin Vial(*)) 5,000 units SUBCUT Q8HR [facility] Pregabalin (Lyrica 50 Mg Cap (*)) 50 mg PO DAILY [facility] Sacubitril/Valsartan (Entresto 97/103(Nf) 1 tab PO BID [facility] Spironolactone (Aldactone Tab*) 12.5 mg PO DAILY [facility] Venlafaxine HCl (Effexor Xr Cap*) 150 mg PO DAILY [facility] Home Medications: Atorvastatin* [Lipitor 10 MG*] 10 mg PO QAM 09/08/14 [History Confirmed 12/31/19 ] Pregabalin [Lyrica] 50 mg PO DAILY 01/07/18 [History Confirmed 12/31/19] Sildenafil Citrate [Viagra] 50 mg PO DAILY PRN 01/07/18 [History Confirmed 12/30] Spironolactone 12.5 mg PO DAILY 01/07/18 [History Confirmed 12/31/19] Carvedilol TAB* [Coreg TAB*] 12.5 mg PO BID 07/06/19 [History Confirmed 12/31/19 ] Sacubitril/Valsartan [Entresto 97 mg-103 mg Tablet] 1 each PO BID 07/06/19 [ History Confirmed 12/31/19] Venlafaxine ER (NF) [Effexor ER (NF)] 150 mg PO DAILY 12/31/19 [History Confirmed 12/31/19] Review of Systems - Measurements Intake and Output: Intake and Output Last 24 Hours 12/29/19 12/30/19 12/31/19 01/01/20 06:59 06:59 06:59 06:59 Intake Total 1000 Balance 1000 Weight 217 lb 8 oz Intake: IV Fluids 1000 - Review of Systems Constitutional Symptoms: Negative: Weight Gain, Weight Loss, Weakness, Fever Dermatology: Negative: Rash, Skin Lesions HEENT: Negative: Change in Hearing, Vertigo Eyes: Negative: Change in Vision, Double Vision Thyroid: Negative: Palpitations, Weight Loss, Weight Gain Pulmonary: Negative: Cough, Sputum, Hemoptysis Cardiology: Positive: Faintness Negative: Syncope, Paroxysmal Nocturnal Dyspnea, Orthopnea Gastroenterology: Negative: Blood in Stools, Haematemesis, Melena Genital - Urinary: Negative: Dysuria, Hematuria Musculoskeletal: Negative: Joint Pain, Joint Stiffness Endocrinology: Positive: Obesity Negative: Diabetes Hematologic/Lymphatic: Negative: Use of Anticoagulant, Use of Antiplatelet Drugs Neurology: Negative: Change in Speech, Change in Sphincter Function, Change in Walking Psychiatry: Negative: Unusual Anxiety, Suicidal Ideation Allergic/Immunologic: Negative: Hx HIV, Immunocompromise Review of Systems Statement: All other review of systems negative, unless stated above. Objective Vital Signs: Temp Pulse Resp BP Pulse Ox 98.7 F 64 18 133/78 98 12/31/19 16:51 12/31/19 16:51 12/31/19 16:51 12/31/19 16:51 12/31/19 16:51 Oxygen Devices in Use Now: None Appearance: nad, pleasant Ears/Nose/Mouth/Throat: Clear Oropharnyx, Mucous Membranes Moist Neck: Trachea Midline Respiratory: Symmetrical Chest Expansion and Respiratory Effort, Clear to Auscultation Cardiovascular: NL Sounds; No Murmurs; No JVD, RRR, No Edema Abdominal: NL Sounds; No Tenderness; No Distention Extremities: No Edema Skin: No Rash or Ulcers Neurological: Alert and Oriented x 3 Laboratory Results: 12/31/19 11:18 12/31/19 11:18 INR (Anticoag Therapy) 1.07 (0.82-1.09) 12/31/19 11:18 APTT 28.5 seconds (26.0-38.0) 12/31/19 11:18 Total Bilirubin 0.50 mg/dL (0.2-1.0) 12/31/19 11:18 AST 19 U/L (13-39) 12/31/19 11:18 ALT 25 U/L (7-52) 12/31/19 11:18 Alkaline Phosphatase 100 U/L (34-104) 12/31/19 11:18 B-Natriuretic Peptide 30 pg/mL (<=100) 12/31/19 11:18 Total Protein 6.8 g/dL (6.4-8.9) 12/31/19 11:18 Albumin 4.4 g/dL (3.2-5.2) 12/31/19 11:18 Globulin 2.4 g/dL (2-4) 12/31/19 11:18 Albumin/Globulin Ratio 1.8 (1-3) 12/31/19 11:18 12/31/19 12/31/19 12/31/19 11:18 13:44 16:57 Troponin I 0.02 0.01 0.01 Diagnostic Imaging: - Transthoracic Echocardiogram Study Date: 12/31/2019 Summary: - Left ventricle: The cavity size is normal. Wall thickness is mildly to moderately increased. Systolic function is normal. The estimated ejection fraction is 55-60%. Wall motion is normal; there are no regional wall motion abnormalities. - Right ventricle: The cavity size is normal. Pacer wire noted in the right ventricle. Systolic function is normal. - Left atrium: The atrium is normal in size. - Right atrium: The atrium is normal in size. - Pulmonary arteries: Systolic pressure cannot be accurately estimated. - No significant valvular abnormalities noted. Exam Date: 12/31/19 CHEST AP/PORT IMPRESSION: NO ACTIVE CARDIOPULMONARY DISEASE. 12/18/16 CARDIAC CATHETERIZATION REPORT: Left ventriculography. The left ventriculography was performed in the standard HERRERA projection and it showed globally reduced left ventricular systolic function with an overall EF of 25% to 30%. CONCLUSION: 1. Skgnnaw-pb-[id number] luminal irregularities of the coronary system without any definite obstructive disease. 1 of 2 EKG Data: ekg on admission nsr 72 bpm, vpaced Assessment/Plan There is no evidence of a cardiac cause of patients symptoms. I think it is very highly unlikely his prolonged symptoms were related to a sustained arrhythmia less than 150 bpm. I think more than likely given his history it was related to gastroesophageal disease. Will sign off, please reconsult as needed.
[2019-12-31] MEDS: VALSARTAN PO SCH (21:16)
[2019-12-31] MEDS: Carvedilol TAB* 6.25 MG PO SCH (21:16)
[2019-12-31] MEDS: SACUBITRIL PO SCH (21:16)
[2019-12-31] MEDS: Heparin VIAL(*) 5000 UNITS/ML VIAL (FIVE THOUSAND) SUBCUT SCH (21:20)
[2020-01-01] MEDS: Heparin VIAL(*) 5000 UNITS/ML VIAL (FIVE THOUSAND) SUBCUT SCH (04:48)
[2020-01-01] MEDS: SACUBITRIL PO SCH (08:49)
[2020-01-01] MEDS: VALSARTAN PO SCH (08:49)
[2020-01-01] MEDS: Carvedilol TAB* 6.25 MG PO SCH (08:49)
[2020-01-01] MEDS ORDERED: Pregabalin 50 mg CAP (*) PO SCH (09:00)
[2020-01-01] MEDS ORDERED: Atorvastatin* 10 MG TAB PO SCH (09:00)
[2020-01-01] MEDS ORDERED: Spironolactone TAB* 25 MG PO SCH (09:00)
[2020-01-01] MEDS ORDERED: Venlafaxine EXT RELEASE CAP* 75 MG PO SCH (09:00)
[2020-01-01 18:27] VITALS: BP 114/73
--- NOTE | 2020-01-01 22:49 | DS ---
CC: Dr. Manuel; Precious Gonzalez NP; Dr. Wallace; Dr. Chu Escobar * DISCHARGE SUMMARY: DATE OF ADMISSION: 12/31/19 DATE OF DISCHARGE: 01/01/20 PRIMARY CARE PROVIDER: Dr. Manuel. DISCHARGE DIAGNOSES: An episode of chest pain and diaphoresis with unremarkable cardiac workup. SECONDARY DIAGNOSES: 1. Nonischemic cardiomyopathy with left bundle-branch block and current ejection fraction of 55%. 2. History of nonsustained ventricular tachycardia, status post biventricular pacer placement. 3. History of sleep apnea, on CPAP. 4. Gastroesophageal reflux disease. 5. Hypertension. MEDICATIONS AT DISCHARGE: Unchanged from admission and include: 1. Atorvastatin 10 mg daily. 2. Coreg 12.5 mg b.i.d. 3. Pregabalin 50 mg daily. 4. Entresto 97/103 one tablet b.i.d. 5. Viagra on a p.r.n. basis. 6. Aldactone 12.5 mg daily. 7. Effexor ER 150 mg daily. CONSULTATION DURING THE HOSPITAL STAY: Included Dr. Escobar from Cardiology. LABORATORY DATA: Pertinent that were not included in history and physical included. Please note the patient's troponins were 0.01 throughout his hospital stay. Initial troponin was 0.02. The patient's D-dimer was below 200. The patient's pacemaker interrogation performed by Dr. Escobar on 12/31/19, impression: "No more device function. No cause of the patient's symptoms identified." It was noted that the patient had 8 beats of nonsustained ventricular tachycardia at 200 beats per minute on 12/15/19. The patient does not remember being symptomatic at this point on that day. Echocardiogram obtained on 12/31/19, showed EF of 55% to 60% with normal systolic function and no significant valvular abnormalities noted. Study was similar to the one from June of 2019. HOSPITALIZATION COURSE: Alvaro Roberts is a 59-year-old male who presented to the hospital complaining of an episode of diaphoresis and chest pain when he was driving back from [place]. The symptom lasted approximately 30 minutes, resolved spontaneously. Of note, the patient awoke at 11 a.m. and the patient had not eaten anything since awakening in the morning that day. His glucose when he arrived to the ED was above 120 though. His troponins continued to be negative. He was placed on overnight observation. His pacemaker was interrogated by Dr. Escobar, who consulted during the case. The patient's echocardiogram was also unremarkable. At this point, we have no etiology of the patient's symptoms that were identified. The patient and the patient's are convinced that it was heart related. The patient did have a low probability of cardiac stress test documented in June of 2019 that showed a small area of ischemia. I did discuss this stress result with the patient. He is to follow up with Dr. Wallace in approximately a month or sooner to further investigate the symptoms. He is aware that so far there were no cardiac abnormalities identified that could precipitate that event. He is going to be discharged home and recommendation to follow up with Dr. Wallace as mentioned above and his primary care provider in 4 to 7 days. The patient's medications on discharge are unchanged. PHYSICAL EXAMINATION: At the time of discharge, unchanged from admission. DISPOSITION AT DISCHARGE: Home. CONDITION AT DISCHARGE: Stable. [id number]/[facility] #: [id number] DWAYNE
== END 2020-01-01 10:36 | disposition home or self-care (01) ==
LOC: ED 10:52 → MEDTELE 14:41
PROVIDERS: ADMIT Internal Medicine; ATTEND Internal Medicine
PROC: 4B02XSZ Measurement of Cardiac Pacemaker, External Approach (ICD-10-PCS; principal; 2019-12-31)
DX: R07.9 Chest pain, unspecified (principal); R61 Generalized hyperhidrosis; I42.8 Other cardiomyopathies; I44.7 Left bundle-branch block, unspecified; Z95.0 Presence of cardiac pacemaker; K21.9 Gastro-esophageal reflux disease without esophagitis; I10 Essential (primary) hypertension; Z98.61 Coronary angioplasty status; G47.33 Obstructive sleep apnea (adult) (pediatric); G89.29 Other chronic pain; Z79.899 Other long term (current) drug therapy; Z87.891 Personal history of nicotine dependence; Z88.8 Allergy status to other drugs, medicaments and biological substances; R06.02 Shortness of breath
CPT/HCPCS: 36415; 71045; 80053; 83735; 83880; 84484; 85025; 85379; 85610; 85730; 93005; 93306; 96360; 96361; 99284; A9270-GY; C8929; G0378; J1644